=== PATIENT | male | born 1955 | race Caucasian/White ===

== ENCOUNTER 2016-07-02 19:11 | Emergency (ER) | payer OTHER ==
[2016-07-02] MEDS ORDERED: LIDOCAINE 2% UROJECT 10 ML ONE (19:45)
[2016-07-02 20:17] LABS: SPECIFIC GRAVITY 1.015 (1.001-1.030); URINE BILIRUBIN NEGATIVE (NEGATIVE); URINE BLOOD 1+ (NEGATIVE); URINE GLUCOSE (UA) NEGATIVE (NEGATIVE); URINE LEUKOCYTE ESTERASE NEGATIVE (NEGATIVE); URINE NITRITE NEGATIVE (NEGATIVE); URINE PROTEIN NEGATIVE (NEGATIVE); URINE UROBILINOGEN NORMAL (0-1 mg/dl)
[2016-07-02 20:24] LABS: CALCIUM 11.4 mg/dL (8.6-10.3)
[2016-07-02 20:33] LABS: URINE APPEARANCE CLEAR; URINE BACTERIA 0; URINE COLOR YELLOW; URINE EPITHELIAL CELLS 0 /hpf; URINE RBC 0-2 /hpf; URINE WBC 0-2 /hpf
== END 2016-07-02 21:35 | disposition home or self-care (01) ==
LOC: ED 19:11
DX: R33.9 Retention of urine, unspecified (principal)
CPT/HCPCS: 80048; 81001; 99283 ×2; 51702; 51798; A9270